=== PATIENT | male | born 1985 | race Caucasian/White ===

== ENCOUNTER 2017-06-16 21:15 | Emergency (ER) | payer SELFPAY ==
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
[2017-06-16] MEDS ORDERED: Sodium Chloride 0.9% 1,000 ML IV ONE (21:29)
[2017-06-16] MEDS ORDERED: Diphtheria,Pertussis(Acell),Tetanus Vaccine 0.5 ML Syringe IM ONE (21:29)
[2017-06-16] MEDS ORDERED: Bacitracin Oint 1 GM U/D Packet TOP ONE (21:38)
[2017-06-16 21:51] LABS: CHLORIDE,CL 106 mmol/L (98-107); SODIUM,NA 144 mmol/L (136-148)
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
== END 2017-06-16 22:20 | disposition other institution (70) ==
LOC: MW.ED 21:15
DX: S01.01XA Laceration without foreign body of scalp, initial encounter (principal); H21.02 Hyphema, left eye; F10.129 Alcohol abuse with intoxication, unspecified; Y04.8XXA Assault by other bodily force, initial encounter; Z23 Encounter for immunization
CPT/HCPCS: 70450; 70486; 71045; 72125; 80053; 85025; 85610; 90715; 96360; 99285; J7040

== ENCOUNTER 2018-06-23 14:53 | Emergency (ER) | payer BC ==
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
[2018-06-23] MEDS ORDERED: Ketorolac 60 MG/2 ML SDV IM ONE (15:11)
--- NOTE | 2018-06-23 15:49 | CR ---
EXAMINATION: Left knee HISTORY: Pain COMPARISON: None TECHNIQUE: 3 views FINDINGS/IMPRESSION: There is abnormal bone marrow mineralization and joint spaces are preserved. No soft tissue swelling or joint effusion.
== END 2018-06-23 16:16 | disposition home or self-care (01) ==
LOC: MW.ED 14:53
DX: S89.92XA Unspecified injury of left lower leg, initial encounter (principal); W17.89XA Other fall from one level to another, initial encounter
CPT/HCPCS: 73562; 96372; 99283; J1885